=== PATIENT | male | born 1950 | race Caucasian/White ===

== ENCOUNTER 2017-01-05 18:41 | Emergency (ER) | payer MEDICAID ==
[~2017-01-05] VITALS: Ht 188 cm; Wt 99.8 kg
[2017-01-05 18:49] VITALS: BP 147/81
== END 2017-01-05 19:49 | disposition home or self-care (01) ==
LOC: ER 18:42
DX: S61.512A Laceration without foreign body of left wrist, initial encounter (principal); W45.8XXA Other foreign body or object entering through skin, initial encounter; Y93.89 Activity, other specified; Y92.89 Other specified places as the place of occurrence of the external cause; Y99.8 Other external cause status
CPT/HCPCS: 12001; 99283; A4217; A4606; A6402; Z7610